=== PATIENT | male | born 1960 | race Caucasian/White ===

== ENCOUNTER 2018-02-27 21:35 | Emergency (ER) | payer OTHER ==
[~2018-02-27] VITALS: Ht 162.6 cm; Wt 65.8 kg
[2018-02-27] MEDS ORDERED: ATOR10 PO (22:04)
[2018-02-27] MEDS ORDERED: Aspir 8181 MG PO (22:06)
[2018-02-27] MEDS ORDERED: METO50 PO (22:06)
[2018-02-27] MEDS ORDERED: RANO500T PO (22:07)
[2018-02-27] MEDS ORDERED: TIOT18 INH (22:07)
[2018-02-27] MEDS ORDERED: GABA300 PO (22:08)
[2018-02-27] MEDS ORDERED: NITR.8TP (22:08)
[2018-02-27] MEDS ORDERED: HYDR1TAB94 PO (22:09)
[2018-02-27] MEDS ORDERED: Ciprodex Otic7.5 ML RIGHTEAR (23:04)
== END 2018-02-27 23:10 | disposition home or self-care (01) ==
LOC: ER 21:35
DX: H72.91 Unspecified perforation of tympanic membrane, right ear (principal); I25.10 Atherosclerotic heart disease of native coronary artery without angina pectoris; I10 Essential (primary) hypertension; I25.2 Old myocardial infarction; E78.5 Hyperlipidemia, unspecified; J44.9 Chronic obstructive pulmonary disease, unspecified; Z79.82 Long term (current) use of aspirin; Z79.899 Other long term (current) drug therapy; Z87.81 Personal history of (healed) traumatic fracture; Z98.890 Other specified postprocedural states; Z95.2 Presence of prosthetic heart valve; Z87.891 Personal history of nicotine dependence
CPT/HCPCS: 99282

== ENCOUNTER 2018-08-30 12:55 | Observation (INO) | payer MEDICARE, OTHER ==
[~2018-08-30] VITALS: Ht 162.6 cm; Wt 67.5 kg
[~2018-08-30 12:55] MED LIST: ATOR10 PO; Aspir 8181 MG PO; Ciprodex Otic7.5 ML RIGHTEAR; GABA300 PO; HYDR1TAB94 PO; METO50 PO; NITR.8TP; Norco 10-325 T1 EACH PO; RANO500T PO; TIOT18 INH
[2018-08-30 13:28] LABS: BASOPHILS ABSOLUTE AUTO 0.04 K/mm3 (0.00-0.23); BASOPHILS PERCENT AUTO 1 % (0-2); EOSINOPHILS ABSOLUTE AUTO 0.09 K/mm3 (0.00-0.68); EOSINOPHILS PERCENT AUTO 1 % (0-6); Hemoglobin 13.9 g/dL (13.5-17.5); IMMATURE GRAN ABSOLUTE AUTO 0.04 K/mm3 (0.00-0.10); IMMATURE GRAN PERCENT AUTO 1 % (0-1); LYMPHOCYTES ABSOLUTE AUTO 2.17 K/mm3 (0.84-5.20); LYMPHOCYTES PERCENT AUTO 28 % (21-46); MONOCYTES ABSOLUTE AUTO 0.56 K/mm3 (0.16-1.47); MONOCYTES PERCENT AUTO 7 % (4-13); Mean Corpuscular HGB 30.8 pg (26.0-34.0); Mean Corpuscular HGB Conc 33.1 g/dL (31.5-36.5); Mean Corpuscular Volume 93 fL (80-100); Mean Platelet Volume 11.5 fL (9.1-12.4); NEUTROPHILS ABSOLUTE AUTO 4.76 K/mm3 (1.96-9.15); NEUTROPHILS PERCENT AUTO 62 % (41-73); Platelet Count 211 K/mm3 (150-400); RDW Coefficient Variation 13.5 % (11.7-14.2); RDW Standard Deviation 46.1 fL (35.1-46.3); Red Blood Cell Count 4.51 M/mm3 (4.30-5.90); White Blood Cell Count 7.66 K/mm3 (4.00-11.30)
[2018-08-30] MEDS ORDERED: AMLO5 PO (13:34)
[2018-08-30] MEDS ORDERED: RANOLAZINE ER1000 MG PO (13:34)
[2018-08-30] MEDS ORDERED: CLOP75 PO (13:34)
[2018-08-30] MEDS ORDERED: ATOR80 PO (13:35)
[2018-08-30 14:04] LABS: Alanine Aminotransfer (ALT/SGP 36 U/L (12-78); Albumin, Blood 3.7 g/dL (3.4-5.0); Albumin/Globulin Ratio 1.1 (0.8-1.8); Alk Phos 86 U/L (50-136); Anion Gap 8 mmol/L (6-16); Aspartate Aminotrans (AST/SGOT 24 U/L (12-37); Bilirubin, Total 0.4 mg/dL (0.1-1.0); Blood Urea Nitrogen 15 mg/dL (8-24); Bun/Creatinine Ratio 14.7 (12.0-20.0); CO2, Blood 27 mmol/L (21-32); Calcium, Blood 8.8 mg/dL (8.5-10.1); Chloride, Blood 105 mmol/L (98-108); Creatinine, Blood 1.02 mg/dL (0.60-1.20); Globulin, Blood 3.4 g/dL (2.2-4.0); Glomerular Filtration Rate >60 (60-); Glucose, Blood 119 mg/dL (70-99); Potassium, Blood 3.7 mmol/L (3.5-5.5); Sodium, Blood 140 mmol/L (136-145); Total Protein, Blood 7.1 g/dL (6.4-8.2); Troponin I <0.015 ng/mL (0.000-0.040)
[2018-08-30] MEDS ORDERED: BUDE6HFA INH (14:30)
--- NOTE | 2018-08-30 19:11 | NUR ---
SHIFT SUMMARY- PT NEW ADMIT THIS PM. DENIES CHEST PAIN. DENIES DIZZINESS. DENIES SOB. RESP E/U ON RA. DENIES N/V. PT'S HR 47 THIS PM. PT REPORTS HIS HR RUNS LOW TYPICALLY AROUND 50BPM. INDEPENDENT IN THE ROOM. NOTIFIED EXPRESSIVE ART THERAPIST RNVANESSA PT TO BE NPO 4 HOURS PRIOR TO STRESS TEST TOMORROW AM. NO OTHER SIGNIFICANT CHANGES THIS SHIFT.
[2018-08-30] MEDS ORDERED: ALBU90OI61 INH (21:34)
--- NOTE | 2018-08-31 04:15 | NUR ---
NOC SHIFT SUMMARY PT ADMITTED FOR CHEST PAIN CONCERNING FOR ACUTE CORONARY SYNDROME. HE IS ON TELE AND PER CREDIT SUPPORT COUNSELOR HE IS CURRENTLY SINUS NATE RATE 45. PER THE PATIENT AND CHART NOTES THIS IS A NORMAL RATE FOR HIM. HE HAS NOT COMPLAINED OF ANY NEW OR WORSENING CHEST PAIN OR DISCOMFORT THIS SHIFT. VSS. TROPONINS THUS FAR ARE NEGATIVE. STRESS TEST IN AM. HAS BEEN NPO SINCE MIDNIGHT. HE IS AAOX4. RESP ARE EVEN AND UNLABORED. AT THIS TIME APPEARS TO BE SLEEPING AND IN NO ACUTE DISTRESS. WILL CONTINUE TO MONITOR.
--- NOTE | 2018-08-31 16:09 | NUR ---
PT IS A/OX3, PLEASANT AND COOPERATIVE, THE PT IS UP IND IN HIS ROOM, THE PT APPEARS TO BE BREATHING EASILY ON RA AT THIS TIME, SO FAR THIS SHIFT HAS DENIED ANY C/P OR ANY OTHER PAIN, THE PT WAS GIVEN THE RESTING PART OF HIS STRESS TEST TODAY AND SO FAR HAS TOLERATED IT WELL, CALL LIGHT IN REACH, WILL CONTINUE TO MONITOR AND ASSESS FOR CHANGES.
--- NOTE | 2018-09-01 04:31 | NUR ---
SHIFT SUMMARY PT PLEASANT AND COOPERATIVE. ALERT AND ORIENTED. DENIED ANY CHEST PAIN OR SOB THROUGHOUT THE NIGHT. SLEPT WELL. TELEMETRY SBRADY 48. 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 ASYMPTOMATIC. OTHERWISE VITAL SIGNS STABLE. PT HAS HAD NO CAFFEINE SINCE MIDNIGHT. MORNING NITRO DOSE HELD FOR SECOND PART OF STRESS TEST TODAY. NO ACUTE CHANGES TONIGHT. WILL CONTINUE TO MONITOR AND REPORT TO DAY RN.
--- NOTE | 2018-09-01 18:10 | NUR ---
SHIFT SUMMARY/ DISCHARGE NOTE PT DISCHARGED TO HOME. PT LEFT ROOM ON STEADY GAIT WITH LOPPER ESCORT AT 1810. IV DC'D BY BEST RICHARDS RN. BELONGINGS RETURNED. PT EDUCATED ON MEDICATIONS AND CHEST PAIN. INSTRUCTED TO FOLLOW UP WITH PCP AND DR PIÑA. PT AGREES. ALL QUESTIONS ANSWERED. PT AXO, PLEASANT AND COOPERATIVE WITH CARE. UP AD WILFREDO IN ROOM. SINUS NATE ON TELE. HAD SECOND PART OF STRESS TEST TODAY, SEE RESULTS
== END 2018-09-01 18:10 | disposition home or self-care (01) ==
LOC: ER 12:55 → MEDS 12:56 → ENPENDDIS 09-01 16:46 → MEDS 09-01 18:10
PROVIDERS: Physician Assistant; ADMIT Internal Medicine
DX: R07.9 Chest pain, unspecified (principal); I25.10 Atherosclerotic heart disease of native coronary artery without angina pectoris; E78.5 Hyperlipidemia, unspecified; I10 Essential (primary) hypertension; J44.9 Chronic obstructive pulmonary disease, unspecified; Z87.891 Personal history of nicotine dependence; Z95.5 Presence of coronary angioplasty implant and graft; Z86.73 Personal history of transient ischemic attack (TIA), and cerebral infarction without residual deficits; Z79.82 Long term (current) use of aspirin; Z79.899 Other long term (current) drug therapy; Z79.01 Long term (current) use of anticoagulants
CPT/HCPCS: 36415; 71046; 78452; 80053; 84484; 85025; 93005; 93010; 93017; 94640; 94760; 99285-25; A9270; A9500; G0378; J0706; J2785

== ENCOUNTER 2019-03-05 15:09 | Inpatient (IN) | payer MEDICARE, OTHER ==
[~2019-03-05] VITALS: Ht 162.6 cm; Wt 73.9 kg
[~2019-03-05 15:09] MED LIST changes: +ALBU90OI61 INH; +AMLO5 PO; +BUDE6HFA INH; +CLOP75 PO; +LIPITOR80 MG PO; -NITR.8TP; +Nitroglycerin1 EAC1 TOP; +RANOLAZINE ER1000 MG PO
[2019-03-05 15:25] LABS: Calcium, Ionized (POC) 1.15 mmol/L (1.10-1.46); Chloride (POC) 103 mmol/L (98-108); Creatinine (POC) 1.1 mg/dL (0.8-1.3); Glucose (ISTAT POC) 111 mg/dL (70-99); Hemoglobin (POC) 13.3 g/dL (13.5-17.5); Potassium (POC) 3.8 mmol/L (3.5-5.5); Sodium (POC) 139 mmol/L (135-148); Total CO2 (POC) 27 mmol/L (21-32)
[2019-03-05] MEDS ORDERED: METO50ER PO (15:25)
[2019-03-05] MEDS ORDERED: NITR.4SL SL (15:25)
[2019-03-05 15:32] LABS: BASOPHILS ABSOLUTE AUTO 0.07 K/mm3 (0.00-0.23); BASOPHILS PERCENT AUTO 1 % (0-2); EOSINOPHILS ABSOLUTE AUTO 0.12 K/mm3 (0.00-0.68); EOSINOPHILS PERCENT AUTO 1 % (0-6); Hematocrit 40.8 % (37.0-53.0); Hemoglobin 13.5 g/dL (13.5-17.5); IMMATURE GRAN ABSOLUTE AUTO 0.06 K/mm3 (0.00-0.10); IMMATURE GRAN PERCENT AUTO 1 % (0-1); LYMPHOCYTES ABSOLUTE AUTO 3.99 K/mm3 (0.84-5.20); LYMPHOCYTES PERCENT AUTO 36 % (21-46); MONOCYTES ABSOLUTE AUTO 1.07 K/mm3 (0.16-1.47); MONOCYTES PERCENT AUTO 10 % (4-13); Mean Corpuscular HGB Conc 33.1 g/dL (31.5-36.5); Mean Corpuscular Volume 94 fL (80-100); NEUTROPHILS ABSOLUTE AUTO 5.88 K/mm3 (1.96-9.15); NEUTROPHILS PERCENT AUTO 53 % (41-73); Platelet Count 241 K/mm3 (150-400); RDW Coefficient Variation 13.2 % (11.7-14.2); RDW Standard Deviation 45.1 fL (35.1-46.3); Red Blood Cell Count 4.36 M/mm3 (4.30-5.90); White Blood Cell Count 11.19 K/mm3 (4.00-11.30)
[2019-03-05 15:51] LABS: Alanine Aminotransfer (ALT/SGP 45 U/L (12-78); Albumin, Blood 3.5 g/dL (3.4-5.0); Albumin/Globulin Ratio 1.1 (0.8-1.8); Alk Phos 79 U/L (50-136); Anion Gap 6 mmol/L (6-16); Aspartate Aminotrans (AST/SGOT 25 U/L (12-37); Bilirubin, Total 0.3 mg/dL (0.1-1.0); Blood Urea Nitrogen 10 mg/dL (8-24); Bun/Creatinine Ratio 9.7 (12.0-20.0); CO2, Blood 27 mmol/L (21-32); Calcium, Blood 8.9 mg/dL (8.5-10.1); Chloride, Blood 107 mmol/L (98-108); Creatinine, Blood 1.03 mg/dL (0.60-1.20); Globulin, Blood 3.3 g/dL (2.2-4.0); Glomerular Filtration Rate >60 (60-); Glucose, Blood 110 mg/dL (70-99); Potassium, Blood 3.9 mmol/L (3.5-5.5); Sodium, Blood 140 mmol/L (136-145); Total Protein, Blood 6.8 g/dL (6.4-8.2); Troponin I <0.015 ng/mL (0.000-0.040)
[2019-03-05 16:00] LABS: Magnesium, Blood 2.1 mg/dL (1.6-2.4)
[2019-03-05 16:03] LABS: International Normalized Ratio 1.06; Prothrombin Time Results 11.2 Sec (9.7-11.5)
[2019-03-05] MEDS ORDERED: METO25ER PO (16:40)
[2019-03-05 22:17] LABS: CPK Creatine Kinase 158 U/L (39-308); Creatine Kinase MB 1.4 ng/mL (0.0-3.6); Creatine Kinase MB Index 0.9 (0.0-4.0); Troponin I <0.015 ng/mL (0.000-0.040)
[2019-03-06 05:57] LABS: BASOPHILS ABSOLUTE AUTO 0.06 K/mm3 (0.00-0.23); BASOPHILS PERCENT AUTO 1 % (0-2); EOSINOPHILS ABSOLUTE AUTO 0.12 K/mm3 (0.00-0.68); EOSINOPHILS PERCENT AUTO 1 % (0-6); Hemoglobin 12.4 g/dL (13.5-17.5); IMMATURE GRAN ABSOLUTE AUTO 0.02 K/mm3 (0.00-0.10); IMMATURE GRAN PERCENT AUTO 0 % (0-1); LYMPHOCYTES ABSOLUTE AUTO 2.57 K/mm3 (0.84-5.20); LYMPHOCYTES PERCENT AUTO 27 % (21-46); MONOCYTES ABSOLUTE AUTO 0.78 K/mm3 (0.16-1.47); MONOCYTES PERCENT AUTO 8 % (4-13); Mean Corpuscular HGB 30.8 pg (26.0-34.0); Mean Corpuscular HGB Conc 32.6 g/dL (31.5-36.5); Mean Corpuscular Volume 95 fL (80-100); Mean Platelet Volume 10.8 fL (9.1-12.4); NEUTROPHILS ABSOLUTE AUTO 5.83 K/mm3 (1.96-9.15); NEUTROPHILS PERCENT AUTO 62 % (41-73); Platelet Count 199 K/mm3 (150-400); RDW Coefficient Variation 13.3 % (11.7-14.2); RDW Standard Deviation 46.4 fL (35.1-46.3); Red Blood Cell Count 4.02 M/mm3 (4.30-5.90); White Blood Cell Count 9.38 K/mm3 (4.00-11.30)
[2019-03-06 06:19] LABS: Alanine Aminotransfer (ALT/SGP 40 U/L (12-78); Albumin, Blood 3.1 g/dL (3.4-5.0); Alk Phos 86 U/L (50-136); Anion Gap 5 mmol/L (6-16); Aspartate Aminotrans (AST/SGOT 20 U/L (12-37); Bilirubin, Total 0.3 mg/dL (0.1-1.0); Blood Urea Nitrogen 14 mg/dL (8-24); Bun/Creatinine Ratio 16.1 (12.0-20.0); CO2, Blood 27 mmol/L (21-32); Calcium, Blood 8.2 mg/dL (8.5-10.1); Chloride, Blood 109 mmol/L (98-108); Creatinine, Blood 0.87 mg/dL (0.60-1.20); Globulin, Blood 3.2 g/dL (2.2-4.0); Glomerular Filtration Rate >60 (60-); Glucose, Blood 94 mg/dL (70-99); Potassium, Blood 4.1 mmol/L (3.5-5.5); Sodium, Blood 141 mmol/L (136-145); Total Protein, Blood 6.3 g/dL (6.4-8.2)
--- NOTE | 2019-03-06 06:59 | NUR ---
LEGAL ACTIVITY ADJUDICATOR SUMMARY PT SLEPT WELL THROUGHOUT THE NIGHT. PT REMOVED NITRO PATCH AROUND 2014. AT 0 PT COMPLAINED OF A CONSTANT HEADACHE ON A PAIN SCALE OF 5/10. DR. MOLINA WAS CALLED AND ORDER OF TYLENOL PO 650 MG WAS PUT IN. AROUND 0 PT COMPLAINED OF FEELING DIZZY AND NAUSEOUS. ZOFRAN IV GIVEN WELL DRY CRACKERS. PT DENIED CHEST PAIN. LATER ON PT COMPLAINED OF FEELING SOB AND FEELING HOT AND CLAMMY. VITALS TAKEN AT 0532 AND 0621 AND THERE WERE NO MAJOR CHANGES IN VITALS SINCE 318. TELE MONITOR ALSO CALLED AROUND THIS TIME. PT IN NSR RUNNING IN LOW 50'S. CHARGE NURSE NOTIFIED OF THIS. OXYGEN GIVEN AT 2 L NASAL CANNULA. PT STATED HIS SOB HAS IMPROVED. NAUSEA AND HEADACHE ALSO HAS IMPROVED. I ASSITED PT IN TAKING OFF HOSPITAL SHIRT WHICH HAS HELPED WITH HIS SWEATING. HOWEVER, PT STILL FEELS DIZZY. PT DENIED CHEST PAIN, SHOULDER PAIN, AND JAW PAIN. DR. MOLINA NOTIFIED OF PT'S CONDITION. DR. MOLINA STATED TO GET AN ACCU CHECK ON PT AND CONTINUE TO MONITOR. AT THIS TIME I DID NOT SEE PT HAD A GLUCOSE OF 94 FROM MORNING LABS AT 0547. AM NURSE NOTIFIED OF PT'S CONDITION AND GETTING AN ACCU CHECK THIS MORNINING.
--- NOTE | 2019-03-06 14:47 | NUR ---
ETHNIC ORIGINS TEACHER PT WENT TO THE ETHNIC ORIGINS TEACHER
--- NOTE | 2019-03-06 15:07 | NUR ---
BELONGINGS PT'S BELONGINGS BROUGHT TO [facility]
--- NOTE | 2019-03-06 15:20 | NUR ---
TRANSFER REPORT CALLED TO TR NATARAJAN IN PCU
--- NOTE | 2019-03-06 18:39 | NUR ---
SHIFT XIANG ASSUMED CARE AT APPROXIMATELY 1600. PT ALERT AND ORIENTED. VS STABLE. HR NSR TO SINUS NATE. BP STABLE. PT DENIES ANY CP. RIGHT RADIAL SITE WITH TOTAL OF 11CC OF AIR IN BAND UPON ADMISSION AND 2CC HAVE BEEN REMOVED AT THIS TIME WITH NO SIGNS OF BLEEDING, HEMATOMA, OR BRUISING NOTED. PT EDUCATED ON RIGHT ARM RESTRICTIONS. WILL CONTINUE TO MONITOR AND REPORT TO ONCOMING RN. CALL LIGHT IN REACH.
--- NOTE | 2019-03-07 00:11 | NUR ---
2330 TR BAND REMOVED WITH NO HEMATOMA NOTED, TEGADERM APPLIED TO RIGHT WRIST WITH ARMBOARD REAPPLIED; DENIES PAIN.
--- NOTE | 2019-03-07 00:35 | NUR ---
RADIAL SITE COVERING FOR PRIMARY RN WHILE ON LUNCH; REASSESSMENT OF RADIAL SITE. PINPOINT INCISION NOTED TO R RADIAL WITH CLEAR TEGADERM DRESSING COVERING. NO BRUISING, HEMATOMA, OR SWELLING NOTED TO SITE OR FOREARM. SCANT AMOUNT OF DRY, RED DRAINAGE NOTED UNDER DRESSING, BUT NO ACTIVE BLEEDING. PT DENIES PAIN ON PALPATION. DENIES N/T IN ARM/HAND. CAPILLARY REFILL <3 SECONDS. POST PROCEDURE EDUCATION REINFORCED FOR SITE CARE. ARM BOARD REPLACED. PT DENIES OTHER NEEDS AT THIS TIME. CALL LIGHT IN REACH.
--- NOTE | 2019-03-07 04:26 | NUR ---
SHIFT SUMMARY: 59 Y/O MALE RESTED COMFORTABLY ALL SHIFT; DENIES CHEST PAIN, SOB OR NAUSEA; WEARING RIGHT WRIST VELCRO ARM BOARD, ANTERIOR ASPECT RADIAL WRIST HAS NON BLEEDING PIN POINT INCISION COVERED WITH TEGADERM DRESSING (NO HEMATOMA NOTED); HAPPY AND COOPERATIVE; UP AD WILFREDO TO BATHROOM AND VOIDING QS; BED LOW POSITION WITH CALL LIGHT AT SIDE.
--- NOTE | 2019-03-07 12:00 | NUR ---
ASSUMED CARE AT APPROXIMATELY 0730 PT ALERT AND ORIENTED. VS STABLE. HR SINUS NATE 50'S. PT DENIES CP. RIGHT RADIAL SITE WITH TEGADERM IN PLACE AND ARM BOARD ON. DR. NINA IN WITH OK FOR DISCHARGE. DR. COOLEY WITH DISCHARGE ORDERS. DISCHARGE INSTRUCTIONS PROVIDED AND EDUCATION PROVIDED. ALL QUESTIONS ANSWERED. PT REFUSED WHEELCHAIR OUT.
== END 2019-03-07 11:58 | disposition home or self-care (01) | DRG 247 ==
LOC: ER 15:09 → MEDS 15:10 → PCU 03-06 16:08
PROVIDERS: Emergency Medicine; ADMIT Internal Medicine
PROC: 4A023N7 Measurement of Cardiac Sampling and Pressure, Left Heart, Percutaneous Approach (ICD-10-PCS; principal; 2019-03-06)
PROC: 027034Z Dilation of Coronary Artery, One Artery with Drug-eluting Intraluminal Device, Percutaneous Approach (ICD-10-PCS; 2019-03-06)
PROC: B211YZZ Fluoroscopy of Multiple Coronary Arteries using Other Contrast (ICD-10-PCS; 2019-03-06)
DX: I25.110 Atherosclerotic heart disease of native coronary artery with unstable angina pectoris (principal); I10 Essential (primary) hypertension; F17.210 Nicotine dependence, cigarettes, uncomplicated; E78.5 Hyperlipidemia, unspecified; J44.9 Chronic obstructive pulmonary disease, unspecified; I73.9 Peripheral vascular disease, unspecified; I25.82 Chronic total occlusion of coronary artery; M54.9 Dorsalgia, unspecified; Z86.73 Personal history of transient ischemic attack (TIA), and cerebral infarction without residual deficits; R00.1 Bradycardia, unspecified; I25.2 Old myocardial infarction; R40.2412 Glasgow coma scale score 13-15, at arrival to emergency department
CPT/HCPCS: 36415; 71045; 71275; 76937; 80047; 80053; 82550; 82553; 83690; 83735; 83880; 84484; 85014; 85025; 85347; 85610; 85730; 93005; 93010; 93454; 94640; 94760; 99152; 99153; 99285-25; A9270; C1725; C1769; C1874; C1887; C1894; C9600; G0378; J1644; J2250; J2405; J3010; J7030; Q9967

== ENCOUNTER 2019-03-14 14:23 | Inpatient (IN) | payer MEDICARE ==
[~2019-03-14] VITALS: Ht 162.6 cm; Wt 74.0 kg
[~2019-03-14 14:23] MED LIST changes: +METO25ER PO; +METO50ER PO; +NITR.4SL SL
[2019-03-14 15:07] LABS: BASOPHILS ABSOLUTE AUTO 0.06 K/mm3 (0.00-0.23); BASOPHILS PERCENT AUTO 1 % (0-2); EOSINOPHILS ABSOLUTE AUTO 0.14 K/mm3 (0.00-0.68); EOSINOPHILS PERCENT AUTO 2 % (0-6); Hematocrit 41.2 % (37.0-53.0); Hemoglobin 13.6 g/dL (13.5-17.5); IMMATURE GRAN ABSOLUTE AUTO 0.03 K/mm3 (0.00-0.10); IMMATURE GRAN PERCENT AUTO 0 % (0-1); LYMPHOCYTES ABSOLUTE AUTO 2.42 K/mm3 (0.84-5.20); LYMPHOCYTES PERCENT AUTO 32 % (21-46); MONOCYTES ABSOLUTE AUTO 0.71 K/mm3 (0.16-1.47); MONOCYTES PERCENT AUTO 9 % (4-13); Mean Corpuscular HGB 31.2 pg (26.0-34.0); Mean Corpuscular Volume 95 fL (80-100); NEUTROPHILS ABSOLUTE AUTO 4.26 K/mm3 (1.96-9.15); NEUTROPHILS PERCENT AUTO 56 % (41-73); Platelet Count 224 K/mm3 (150-400); RDW Coefficient Variation 13.3 % (11.7-14.2); RDW Standard Deviation 46.5 fL (35.1-46.3); Red Blood Cell Count 4.36 M/mm3 (4.30-5.90); White Blood Cell Count 7.62 K/mm3 (4.00-11.30)
[2019-03-14 15:29] LABS: Alanine Aminotransfer (ALT/SGP 53 U/L (12-78); Albumin, Blood 3.6 g/dL (3.4-5.0); Alk Phos 95 U/L (50-136); Anion Gap 7 mmol/L (6-16); Aspartate Aminotrans (AST/SGOT 34 U/L (12-37); Bilirubin, Total 0.3 mg/dL (0.1-1.0); Blood Urea Nitrogen 10 mg/dL (8-24); Bun/Creatinine Ratio 11.4 (12.0-20.0); CO2, Blood 27 mmol/L (21-32); Calcium, Blood 8.5 mg/dL (8.5-10.1); Chloride, Blood 107 mmol/L (98-108); Creatinine, Blood 0.88 mg/dL (0.60-1.20); Globulin, Blood 3.6 g/dL (2.2-4.0); Glomerular Filtration Rate >60 (60-); Glucose, Blood 108 mg/dL (70-99); Potassium, Blood 3.6 mmol/L (3.5-5.5); Sodium, Blood 141 mmol/L (136-145); Total Protein, Blood 7.2 g/dL (6.4-8.2); Troponin I <0.015 ng/mL (0.000-0.040)
[2019-03-14] MEDS ORDERED: TOPROL XL50 MG PO (17:24)
--- NOTE | 2019-03-14 18:10 | NUR ---
ECHOCARDIOGRAM COMPLETE
--- NOTE | 2019-03-15 06:29 | NUR ---
CONSERVATOR ARTIFACTS SUMMARY NEW ADMIT FROM THE ED AT START OF SHIFT. PT ADMITTED FOR CP HOWEVER PT DENIES CP SINCE COMING TO HOSPITAL. PT DENIES PAIN BUT DOES STILL HAVE SOME MILD DYSPNEA ON EXERTION. CUSTOMS INSPECTOR REPORTS SINUS NATE TO SINUS RHYTHM WITH HEART RATE AVG 50-60'S. PT HAS BEEN NPO SINCE MIDNIGHT FOR POSSIBLE PROCEDURE IN CORRECTIVE THERAPIST THIS AM. VSS, WILL CONTINUE TO MONITOR.
[2019-03-15 07:23] LABS: CHOL/HDL RATIO 2.8; Cholesterol 105 mg/dL (50-200); HDL Cholesterol 37 mg/dL (>39); LDL/HDL RATIO 1.3; Low Density Lipoprotein Chol 49 mg/dL (0-110); Triglycerides 93 mg/dL (30-160); Troponin I <0.015 ng/mL (0.000-0.040); Very Low Density Lipoprot Chol 18 mg/dL (6-32)
--- NOTE | 2019-03-15 12:10 | NUR ---
ARRIVED TO ROOM: PT ARIVED TO THE ROOM AT THIS TIME. REPORT RECEIVED FROM [facility]. PT HAS R RADIAL SITE WITH A TR BAND IN PLACE. NO BLEEDING NOTED. SITE APPEARS TO BE C/D/I. WILL CONTINUE TO ASSESS AND MONITOR.
--- NOTE | 2019-03-15 12:50 | NUR ---
Patient is sitting up in bed and alert. Patient openly shares about his medical history, his family unit complications, and about his religion belief system. Patient voices his concerns about his going forward but holds on to his prayers as a way to increase his chances for increased health. i listen empathically, reinforce helpful attitudes and practices, and provide pastoral corporate counselor and prayers. Patient repsponds well and shows signs of restored luiza. I will continue to remain available to patient and family.
--- NOTE | 2019-03-15 14:01 | NUR ---
PAIN IN R WRIST: PT CALLS WITH C/O RADIATING PAIN STARTING FROM HIS WRIST UP HIS ARM. REMOVED SOME AIR FROM THE TR BAND AND PT STATES MILD RELIEF, NO BLEEDING NOTED AT, AROUND OR UNDER THE SITE. BP IS STABLE AT 142/67. REMOVED ALL THE AIR IN THE TR BAND AND PT STATES PAIN IS GONE. CONTINUED TO MONITOR THE SITE, NO BLEEDING NOTED. TR BAND REMAINS IN PLACE, BUT ALL THE AIR IS DEFLATED FROM THE CUFF. WILL CONTINUE TO MONITOR AND ASSESS FURTHER.
--- NOTE | 2019-03-15 16:46 | NUR ---
REMOVED TR BAND: NO CHANGES NOTED AT OR AROUND INSERTION SITE. PT STATES PAIN REMAINS GONE SINCE AIR WAS REMOVED FROM THE CUFF. PT C/O HEAD ACHE AND MEDICATED WITH TYLENOL PER ORDERS. WILL CONTINUIE TO MONITOR AND ASSESS FURTHER.
--- NOTE | 2019-03-15 18:47 | NUR ---
SHIFT SUMMARY: NO ACUTE CHANGES HAVE BEEN NOTED. EDUCATED PT AND ON THE NEED FOR CARDIAC DIET AND NEED TO REDUCE/ELEMINATE COFFEE FROM PTAIENTS DIET. HAS BEEN BRINGING COFFEE IN FOR THE PT WELL FOOD CONTRARY TO EDCUATION GIVEN. R RADIAL SITE CONTINUES TO BE FREE FROM ANY S/S OF BLEEDING. WILL CONTINUE TO MONITOR AND REPORT TO ONCOMING RN. CALL LIGHT IN REACH. BED IN LOWEST POSSITION. PT IS INDEPENDENT IN THE ROOM.
--- NOTE | 2019-03-15 20:20 | NUR ---
ASSUMED CARE ASSUMED CARE OF PATIENT AT 1900 HOURS, PATIENT JUST RETURNED FROM BATHROOM, INDEPENDENT IN ROOM, SITTING AT SIDE OF BED IN NO APPARENT DISTRESS. VITAL SIGNS WNL. ANGIO SITE TO RIGHT WRIST COVERED WITH TEGADERM AND DRY AND INTACT UNDER DRESSING, PATIENT DENIES PAIN AT SITE, ALTHOUGH REPORTS THAT TR BAND WHILE IN PLACE CAUSED PAIN UP HIS RIGHT ARM. SIMILARLY, PATIENT'S IV TO LEFT AC IS WNL, PT DENIES PAIN AT SITE IN SITU, BUT STATES CAUSES DISCOMFORT UP HIS LEFT ARM SOMETIMES WHEN THE IV IS MANIPULATED, OR WHEN HE FLEXES ELBOW TO ITS EXTREME. WILL TREAT PER EMAR AND UNIT PROTOCOL, WILL CONTINUE TO MONITOR.
[2019-03-16 03:29] LABS: BASOPHILS ABSOLUTE AUTO 0.03 K/mm3 (0.00-0.23); BASOPHILS PERCENT AUTO 0 % (0-2); EOSINOPHILS ABSOLUTE AUTO 0.02 K/mm3 (0.00-0.68); EOSINOPHILS PERCENT AUTO 0 % (0-6); Hematocrit 38.5 % (37.0-53.0); Hemoglobin 12.7 g/dL (13.5-17.5); IMMATURE GRAN ABSOLUTE AUTO 0.04 K/mm3 (0.00-0.10); IMMATURE GRAN PERCENT AUTO 0 % (0-1); LYMPHOCYTES ABSOLUTE AUTO 1.24 K/mm3 (0.84-5.20); LYMPHOCYTES PERCENT AUTO 12 % (21-46); MONOCYTES ABSOLUTE AUTO 0.11 K/mm3 (0.16-1.47); MONOCYTES PERCENT AUTO 1 % (4-13); Mean Corpuscular HGB 31.4 pg (26.0-34.0); Mean Corpuscular Volume 95 fL (80-100); Mean Platelet Volume 11.2 fL (9.1-12.4); NEUTROPHILS ABSOLUTE AUTO 8.92 K/mm3 (1.96-9.15); NEUTROPHILS PERCENT AUTO 86 % (41-73); Platelet Count 204 K/mm3 (150-400); RDW Coefficient Variation 13.2 % (11.7-14.2); RDW Standard Deviation 46.1 fL (35.1-46.3); Red Blood Cell Count 4.04 M/mm3 (4.30-5.90); White Blood Cell Count 10.36 K/mm3 (4.00-11.30)
[2019-03-16 03:48] LABS: Alanine Aminotransfer (ALT/SGP 52 U/L (12-78); Albumin, Blood 3.6 g/dL (3.4-5.0); Alk Phos 74 U/L (50-136); Anion Gap 6 mmol/L (6-16); Aspartate Aminotrans (AST/SGOT 24 U/L (12-37); Bilirubin, Total 0.4 mg/dL (0.1-1.0); Blood Urea Nitrogen 19 mg/dL (8-24); Bun/Creatinine Ratio 22.4 (12.0-20.0); CO2, Blood 24 mmol/L (21-32); Calcium, Blood 8.7 mg/dL (8.5-10.1); Chloride, Blood 107 mmol/L (98-108); Creatinine, Blood 0.85 mg/dL (0.60-1.20); Globulin, Blood 3.5 g/dL (2.2-4.0); Glomerular Filtration Rate >60 (60-); Glucose, Blood 161 mg/dL (70-99); Potassium, Blood 4.2 mmol/L (3.5-5.5); Sodium, Blood 137 mmol/L (136-145); Total Protein, Blood 7.1 g/dL (6.4-8.2)
--- NOTE | 2019-03-16 05:29 | NUR ---
SHIFT SUMMARY NO ACUTE CHANGES SINCE OPENING NOTE. PATIENT WAS COOPERATIVE AND DID NOT REQUIRE ANYTHING OTHER THAN ROUTINE INTERVENTIONS. PATIENT ADMITTED TO MILD/MODERATE SOB WITH EXERTION SUCH TOILETING, BUT REPORTED THAT IT WAS BETTER THAN PREVIOUS DAYS. PATIENT DENIED PAIN, DENIED CHEST PAIN, ALL VSS. WILL CONTINUE TO MONITOR AND WILL PASS CARE AND REPORT TO ONCOMING SHIFT AT 0700. BED IS LOCKED AND LOW, CALL LIGHT W/IN REACH, PT IS INDEPENDENT IN ROOM.
--- NOTE | 2019-03-16 07:42 | NUR ---
pt laying in bed awake watching tv, a/ox3, pleasant and cooperative with care, follows commands well, denies any complaints of pain, lungs are clear t/o, resp even and unlabored, no cough noted, hrr, tele in place running sb to sr per tele, see strip, no edema noted, ppp+2, cap refill <3sec, vs stable, afebrile, iv site is clear and patent, btx4, abd flat soft nontender, voids without diff, skin c/w/d except right radial angio site, with occlusive dressing in place and arm board in place, brennon bocanegra, call light in reach.
[2019-03-16] MEDS ORDERED: Nicoderm Cq1 EACH TOP (10:20)
[2019-03-16] MEDS ORDERED: Isosorbide Mono60 MG PO (10:21)
--- NOTE | 2019-03-16 10:54 | NUR ---
pt has been discharged to home, went over instructions with him, he verbalized understanding, faxed new meds to [facility], iv removed intact, pt has arm board in place, went over instructions for tr band site care, he verbalized understanding, he and family have all belongings, will ambulate out.
== END 2019-03-16 11:20 | disposition home or self-care (01) | DRG 287 ==
LOC: ER 14:23 → MEDS 14:24 → PCU 03-15 11:41
PROVIDERS: Nurse Practitioner Acute Care; Physician Assistant; ADMIT Internal Medicine
PROC: 4A023N7 Measurement of Cardiac Sampling and Pressure, Left Heart, Percutaneous Approach (ICD-10-PCS; principal; 2019-03-15)
PROC: B2111ZZ Fluoroscopy of Multiple Coronary Arteries using Low Osmolar Contrast (ICD-10-PCS; 2019-03-15)
PROC: 4A033BC Measurement of Arterial Pressure, Coronary, Percutaneous Approach (ICD-10-PCS; 2019-03-15)
DX: I25.118 Atherosclerotic heart disease of native coronary artery with other forms of angina pectoris (principal); J44.9 Chronic obstructive pulmonary disease, unspecified; E78.5 Hyperlipidemia, unspecified; F17.210 Nicotine dependence, cigarettes, uncomplicated; I25.2 Old myocardial infarction; Z95.5 Presence of coronary angioplasty implant and graft; Z86.73 Personal history of transient ischemic attack (TIA), and cerebral infarction without residual deficits; I73.9 Peripheral vascular disease, unspecified
CPT/HCPCS: 36415; 71046; 80053; 80061; 83880; 84484; 85025; 85347; 93005; 93010; 93306; 93458; 93571; 93572; 94640; 94760; 96374; 96376; 99152; 99153; 99285-25; A9270; C1769; C1887; C1894; G0378; J1644; J2250; J2920; J3010; J7030; Q9967

== ENCOUNTER 2021-01-19 22:49 | Emergency (ER) | payer MEDICARE, OTHER ==
[~2021-01-19] VITALS: Ht 162.6 cm; Wt 74.8 kg
[~2021-01-19 22:49] MED LIST changes: +Isosorbide Mono60 MG PO; +Nicoderm Cq1 EACH TOP; +TOPROL XL50 MG PO
== END 2021-01-20 00:42 | disposition home or self-care (01) ==
LOC: ER 22:49
DX: M79.661 Pain in right lower leg (principal); G57.93 Unspecified mononeuropathy of bilateral lower limbs; I25.2 Old myocardial infarction; Z86.73 Personal history of transient ischemic attack (TIA), and cerebral infarction without residual deficits; F17.210 Nicotine dependence, cigarettes, uncomplicated; Z79.899 Other long term (current) drug therapy; Z79.82 Long term (current) use of aspirin; Z79.02 Long term (current) use of antithrombotics/antiplatelets
CPT/HCPCS: 93971; 99284-25

== ENCOUNTER 2024-09-21 06:57 | Day surgery (SDC) | payer MEDICARE, OTHER ==
[~2024-09-21] VITALS: Ht 162.6 cm; Wt 74.0 kg
[~2024-09-21 06:57] MED LIST changes: +ALBU90OI INH; -ALBU90OI61 INH; -BUDE6HFA INH; +PRAV20 PO; -RANOLAZINE ER1000 MG PO; +RANOLAZINE ER500 M2; +SYMBICORT 160-4.6 GM
[2024-09-21] MEDS ORDERED: ISOSORBIDE MONO60 MG (07:57)
[2024-09-21] MEDS ORDERED: Nitrostat0.3 MG (08:00)
[2024-09-21] MEDS ORDERED: Glycopyrrolate 0.2 MG/ML 1MLVIAL ONE (08:51)
[2024-09-21 09:53] VITALS: BP 121/74
== END 2024-09-21 09:50 | disposition home or self-care (01) ==
LOC: ORSCSDS 06:57
PROVIDERS: Specialist
PROC: 0DJD8ZZ Inspection of Lower Intestinal Tract, Via Natural or Artificial Opening Endoscopic (ICD-10-PCS; principal; 2024-09-21 09:00)
DX: Z09 Encounter for follow-up examination after completed treatment for conditions other than malignant neoplasm (principal); Z86.0101 Personal history of adenomatous and serrated colon polyps; Z83.719 Family history of colon polyps, unspecified; K64.8 Other hemorrhoids; K57.30 Diverticulosis of large intestine without perforation or abscess without bleeding; I10 Essential (primary) hypertension; I25.10 Atherosclerotic heart disease of native coronary artery without angina pectoris; E78.5 Hyperlipidemia, unspecified; J44.9 Chronic obstructive pulmonary disease, unspecified; I73.9 Peripheral vascular disease, unspecified; K21.9 Gastro-esophageal reflux disease without esophagitis; F17.210 Nicotine dependence, cigarettes, uncomplicated; Z79.02 Long term (current) use of antithrombotics/antiplatelets; Z79.899 Other long term (current) drug therapy
CPT/HCPCS: J2704; J7120